=== PATIENT | female | born 1930 | race African-American/Black ===

== ENCOUNTER 2016-11-14 16:47 | Inpatient (IN) | payer MEDICARE, BC ==
[~2016-11-14] VITALS: Ht 157.5 cm; Wt 43.5 kg
[2016-11-14 17:41] LABS: BASOPHILS % (AUTO) 1.4 % (0.0-2.0); EOSINOPHILS % (AUTO) 0.2 % (0.0-3.0); LYMPHOCYTES % (AUTO) 13.9 % (20.0-45.0); MEAN CORPUSCULAR HEMOGLOBIN 33.4 PG (27.0-31.0); MEAN CORPUSCULAR HGB CONC 36.4 G/DL (32.0-36.0); MEAN CORPUSCULAR VOLUME 92 FL (80-99); MEAN PLATELET VOLUME 5.7 FL (6.5-10.1); MONOCYTES % (AUTO) 6.7 % (1.0-10.0); NEUTROPHILS % (AUTO) 77.9 % (45.0-75.0); PLATELET COUNT 251 K/UL (150-450); RED CELL DISTRIBUTION WIDTH 11.9 % (11.6-14.8); WHITE BLOOD COUNT 9.3 K/UL (4.8-10.8)
[2016-11-14] MEDS ORDERED: NKM (17:42)
[2016-11-14 17:43] VITALS: BP 114/72
--- NOTE | 2016-11-14 17:50 | Emergency Room Report ---
History of Present Illness General Chief Complaint: Generalized Weakness Source: Family Member Present Illness HPI 85YOF brought in by family for weakness for 1 week ,thought d/t not wanting to eat. Patient has breast cancer, not currently being treated. Son denies chest pain, SOB, abd pain, nausea/vomiting, fever/chills, c/o urinary complaints. No other known medical problems. Doesnt have PMD. Allergies: Coded Allergies: CORTISONE (Verified Allergy, Unknown, 11/14/16) STREPTOMYCIN (Verified Allergy, Unknown, 11/14/16) SULFA (SULFONAMIDE ANTIBIOTICS) (Verified Allergy, Unknown, 11/14/16) Patient History Past Medical History: other - breast Ca Past Surgical History: none Pertinent Family History: none Social History: Denies: alcohol use, drug use, smoking Now: No Immunizations: UTD Reviewed Nursing Documentation: PMH: Agreed, PSxH: Agreed Nursing Documentation-PMH Past Medical History: No History, Except For Hx Hypertension: Yes Hx Cancer: Yes Review of Systems All Other Systems: negative except mentioned in HPI Physical Exam Vital Signs Date Time Temp Pulse Resp B/P Pulse Ox O2 Delivery O2 Flow Rate FiO2 11/14/16 16:48 97.7 86 16 130/82 100 Room Air Sp02 EP Interpretation: reviewed, normal General Appearance: normal inspection, well appearing, no apparent distress, alert, GCS 15, non-toxic, lethargic, other - very weak appearing, moving slowly , Chronically Ill Head: normocephalic, atraumatic Eyes: bilateral eye EOMI, bilateral eye PERRL ENT: normal ENT inspection, hearing grossly normal, normal voice, dry mucus membranes Neck: normal inspection, full range of motion, supple, no bony tend Respiratory: normal inspection, lungs clear, normal breath sounds, no rhonchi, no respiratory distress, no retraction, no accessory muscle use, no wheezing, speaking full sentences Cardiovascular #1: regular rate, rhythm, no edema Gastrointestinal: normal inspection, normal bowel sounds, non tender, soft, no guarding, no hernia Genitourinary: no CVA tenderness Musculoskeletal: normal inspection, back normal, normal range of motion, Eddi' s Sign negative Neurologic: normal inspection, alert, oriented x3, responsive, errand runner III-XII nml as tested, motor strength/tone normal Psychiatric: normal inspection, judgement/insight normal, mood/affect normal Skin: normal inspection, normal color, warm/dry, other - dry skin Lymphatic: normal inspection Medical Decision Making Medicare Attestation I Elaine Spivey MD hereby attest that the medical record entry for date of service, 05/25/16 accurately reflects signatures/notations that I made in my capacity as MD when I treated/diagnosed the above listed Medicare beneficiary. I attest that this information is true, accurate and complete to the best of my knowledge. I understand that any falsification, omission, or concealment of material fact may subject me to administrative, civil, or criminal liability. This patient warrants hospital admission for extreme of age and has a condition that cannot be treated as outpatient. Diagnostic Impression: Primary Impression: Episode of generalized weakness Additional Impressions: CAITLIN (acute kidney injury) Hypercalcemia ER Course 85YOF with weakness for 1 week, not eating VSS. Afebrile Weakness - Appears very weak but alert and oriented - No sign of Sepsis, systemic illness - Labs c/w dehydration, hypercalcemia - ECG with multiple PVCs but no ischemia. Troponin 0. - UA and CXR negative for infection - Rehydration gently started in ED for CAITLIN, hyperCa Endorsed to Dr Sanchez for panel admission to med/surg bed at 628pm EKG Diagnostic Results Rate: normal, other - PVCs, fusion complexes Rhythm: NSR ST Segments: no acute changes ASA given to the pt in ED: No Rhythm Strip Diag. Results EP Interpretation: yes Rate: 85 Rhythm: NSR, other - PVCs Chest X-Ray Diagnostic Results EP Interpretation: Yes Findings: no consolidation, no effusion, no pneumothorax, no acute cardiopulmonary disease Number of Views: 1 Last Vital Signs Date Time Temp Pulse Resp B/P Pulse Ox O2 Delivery O2 Flow Rate FiO2 11/14/16 17:43 97.7 80 16 114/72 100 Room Air Status: improved Disposition: ADMITTED INPATIENT Condition: Serious Referrals: NOT CHOSEN IPA/,REFERRING (PCP) ELAINE SPIVEY M.D. November 14, 2016 17:50
[2016-11-14 17:54] LABS: APPEARANCE,URINE CLEAR; KETONES,URINE NEGATIVE (NEGATIVE); LEUKOCYTE ESTERASE ,URINE NEGATIVE (NEGATIVE); NITRITE,URINE NEGATIVE (NEGATIVE); PH,URINE 6 (4.5-8.0); PROTEIN,URINE NEGATIVE (NEGATIVE); TROPONIN I < 0.30 ng/mL (<=0.30); UROBILINOGEN,URINE NORMAL MG/DL (0.0-1.0)
[2016-11-14 17:57] LABS: ALANINE AMINOTRANSFERASE 11 U/L (3-33); ANION GAP 16 (5-15); ASPARTATE AMINO TRANSFERASE 15 U/L (5-40); CALCIUM 11.4 mg/dL (8.6-10.2); CARBON DIOXIDE 31 mEQ/L (20-30); CHLORIDE 89 mEQ/L (98-107); CREATININE 1.1 mg/dL (0.5-0.9); HEMOLYSIS 10; POTASSIUM 4.2 mEQ/L (3.4-4.9); SODIUM 136 mEQ/L (135-145); TOTAL PROTEIN 6.9 g/dL (6.6-8.7)
[2016-11-14 18:07] LABS: CKMB < 1.5 ng/mL (< 3.8)
[2016-11-14 18:31] LABS: BILIRUBIN,DIRECT 0.2 mg/dL (0.1-0.3)
[2016-11-14 18:54] VITALS: BP 105/57
[2016-11-14 21:00] VITALS: BP 114/66
[2016-11-14] MEDS ORDERED: Morphine Sulfate 2mg/ml Inj IVP PRN (21:45)
[2016-11-14] MEDS ORDERED: Mylanta II UD 30ml ORAL PRN (21:45)
[2016-11-14] MEDS ORDERED: Miralax 17gm pkt ORAL PRN (21:45)
[2016-11-14] MEDS ORDERED: LORazepam Inj 2mg/ml 1ml IV PRN (21:45)
[2016-11-14] MEDS ORDERED: Nitroglycerin Subl 0.4mg tab (Bottle Of 25) SL PRN (21:45)
[2016-11-14] MEDS ORDERED: DuoNeb 0.5-3(2.5)mg/3ml neb HHN PRN (21:45)
[2016-11-14 21:55] LABS: THYROID STIMULATING HORMONE 1.55 uIU/mL (0.300-4.500)
[2016-11-14] MEDS: D5 1/2NS 1,000 ML IV SCH (22:37)
--- NOTE | 2016-11-15 04:01 | Consultation ---
DATE OF CONSULTATION: HEMATOLOGY/ONCOLOGY CONSULTATION REQUESTING PHYSICIAN: Rishi Sanchez D.O. CONSULTING PHYSICIAN: Terell Almazan M.D. REASON FOR CONSULTATION: Hypercalcemia and breast cancer. CURRENT COMPLAINT/HISTORY OF PRESENT ILLNESS: Dear Dr. Rishi Sanchez, Today, I had an opportunity to see one of your patients, Oleg Riggs, who as you well aware 85-year-old delightful female, with history of breast cancer. The patient is not currently being treated. The patient has generalized weakness, extreme fatigue, and mild shortness of breath. During evaluation, it was found that the patient developed some hypercalcemia. The patient with history of hypertension, history of breast cancer. PAST MEDICAL HISTORY: 1. Breast cancer, not currently being treated. 2. Hypertension. 3. Decreased p.o. intake. 4. Decreased fluid intake. 5. Weight loss. 6. Malnutrition. MEDICATIONS: Medication list reviewed. Sodium chloride. ALLERGIES: SOCIAL HISTORY: Noncontributory. FAMILY HISTORY: Noncontributory. REVIEW OF SYSTEMS: General Description: The patient is not in any significant distress, but looks chronically ill. Respiratory: Mild shortness of breath on exertion. Neuromuscular: The patient claims muscle aches. PHYSICAL EXAMINATION: VITAL SIGNS: T-Max 97 degrees, respiratory rate 20, heart rate 80, and blood pressure 125/75. HEENT: Head: Normocephalic and atraumatic. NECK: Supple. No thyroid enlargement. No lymphadenopathy. LUNGS: Decreased breath sounds bilaterally with few rhonchi in the base. HEART: S1 and S2 regular. ABDOMEN: Soft and benign. No organomegaly present. Bowel sounds present. EXTREMITIES: No cyanosis, clubbing, or edema. LABORATORY DATA: 121 and calcium 11.4. Hemoglobin 15.0, hematocrit 41.3, and platelet count 351,000. IMPRESSION: 1. History of breast cancer. 2. History of noncompliance. 3. Hypertension. 4. Malnutrition. 5. Significant weight loss. 6. Decreased oral intake. 7. Decreased fluid intake. 8. Debilitation. 9. Failure to thrive. RECOMMENDATIONS: 1. Watch count. 2. Watch coagulopathy. 3. PRBC transfusion p.r.n. basis. 4. Hydration IV. 5. GI evaluation. 6. Check tumor markers. 7. Skin care. 8. Nutrition. 9. Close followup. 10. Discussed with the staff. Terell Almazan MD DR: Marce JOB#: [id number] CC:
[2016-11-15 07:43] LABS: BASOPHILS % (AUTO) 0.4 % (0.0-2.0); EOSINOPHILS % (AUTO) 0.4 % (0.0-3.0); LYMPHOCYTES % (AUTO) 13.4 % (20.0-45.0); MEAN CORPUSCULAR HEMOGLOBIN 31.5 PG (27.0-31.0); MEAN CORPUSCULAR HGB CONC 34.7 G/DL (32.0-36.0); MEAN CORPUSCULAR VOLUME 91 FL (80-99); MEAN PLATELET VOLUME 5.8 FL (6.5-10.1); MONOCYTES % (AUTO) 11.4 % (1.0-10.0); NEUTROPHILS % (AUTO) 74.5 % (45.0-75.0); PLATELET COUNT 245 K/UL (150-450); RED BLOOD COUNT 3.63 M/UL (4.20-5.40); WHITE BLOOD COUNT 7.8 K/UL (4.8-10.8)
[2016-11-15 07:49] LABS: INR 1.1 (0.9-1.1); PROTHROMBIN TIME 10.9 SEC (9.30-11.50)
[2016-11-15 08:01] LABS: ALANINE AMINOTRANSFERASE 9 U/L (3-33); ALBUMIN/GLOBULIN RATIO 1.1 (1.0-2.7); ANION GAP 12 (5-15); ASPARTATE AMINO TRANSFERASE 13 U/L (5-40); CALCIUM 10.1 mg/dL (8.6-10.2); CARBON DIOXIDE 27 mEQ/L (20-30); CHLORIDE 97 mEQ/L (98-107); CHOLESTEROL 154 mg/dL (< 200); CHOLESTEROL/HDL RATIO 1.9 (3.3-4.4); CREATININE 0.8 mg/dL (0.5-0.9); HEMOLYSIS 1; LDL CHOLESTEROL (CALC.) 60 mg/dL (60-99); SODIUM 136 mEQ/L (135-145); TOTAL PROTEIN 5.7 g/dL (6.6-8.7)
[2016-11-15 08:15] VITALS: BP 99/53
[2016-11-15] MEDS: D5 1/2NS 1,000 ML IV SCH (10:49)
[2016-11-15 12:13] VITALS: BP 108/58
[2016-11-15 16:01] VITALS: BP 88/46
[2016-11-15 16:37] VITALS: BP 93/50
--- NOTE | 2016-11-15 17:39 | Consultation ---
History of Present Illness General Chief Complaint: Generalized Weakness Referring physician: Dr Rishi Sanchez Reason for Consultation: Acute Kidney Injury Present Illness HPI Leanne an 85 yr old female with a PMHx of Breast cancer not currently on treatment, and HTN who presented to the ED with generalized weakness, poor po intake and shortness of breath. Pt was found to have elevated BUN and creatinine in ED Allergies: Coded Allergies: CORTISONE (Verified Allergy, Unknown, 11/14/16) STREPTOMYCIN (Verified Allergy, Unknown, 11/14/16) SULFA (SULFONAMIDE ANTIBIOTICS) (Verified Allergy, Unknown, 11/14/16) Medication History Scheduled No Known Medications* (NKM - No Known Medications*), 0 ., (Reported) Patient History Healthcare decision maker SANJAY RANGLE SR Resuscitation status Advanced Directive on File Yes Past Medical/Surgical History Past Medical/Surgical History: (1) HTN (hypertension) (2) Breast cancer Social History Social History: (1) Non-smoker (2) No history of alcohol use (3) No illicit drug use Review of Systems All Other Systems: negative except mentioned in HPI Physical Exam General Appearance: alert Lines, tubes and drains: peripheral HEENT: normocephalic, atraumatic Neck: non-tender, normal alignment, supple, normal inspection Respiratory/Chest: normal breath sounds Cardiovascular/Chest: normal peripheral pulses, normal rate, regular rhythm Abdomen: non tender, soft, no organomegaly Extremities: non-tender, normal inspection Skin Exam: warm/dry Neurologic: alert, responsive, normal mood/affect Last 24 Hour Vital Signs Date Time Temp Pulse Resp B/P Pulse Ox O2 Delivery O2 Flow Rate FiO2 11/15/16 16:37 93/50 11/15/16 16:01 97.6 88 23 88/46 99 Room Air 11/15/16 12:13 97.6 86 23 108/58 99 Room Air 11/15/16 08:15 98.1 80 20 99/53 97 Room Air 11/14/16 21:00 98.1 20 114/66 97 Room Air 11/14/16 18:59 97.7 77 16 105/57 97 Room Air 11/14/16 18:54 97.7 77 16 105/57 97 Room Air 11/14/16 17:43 97.7 80 16 114/72 100 Room Air Intake and Output 11/14/16 11/15/16 19:00 07:00 Intake Total 600 ml Balance 600 ml IV Total 600 ml # Voids 1 3 Laboratory Tests Test 11/15/16 06:40 White Blood Count 7.8 K/UL (4.8-10.8) Red Blood Count 3.63 M/UL (4.20-5.40) L Hemoglobin 11.5 G/DL (12.0-16.0) L Hematocrit 33.0 % (37.0-47.0) L Mean Corpuscular Volume 91 FL (80-99) Mean Corpuscular Hemoglobin 31.5 PG (27.0-31.0) H Mean Corpuscular Hemoglobin Concent 34.7 G/DL (32.0-36.0) Red Cell Distribution Width 12.0 % (11.6-14.8) Platelet Count 245 K/UL (150-450) Mean Platelet Volume 5.8 FL (6.5-10.1) L Neutrophils (%) (Auto) 74.5 % (45.0-75.0) Lymphocytes (%) (Auto) 13.4 % (20.0-45.0) L Monocytes (%) (Auto) 11.4 % (1.0-10.0) H Eosinophils (%) (Auto) 0.4 % (0.0-3.0) Basophils (%) (Auto) 0.4 % (0.0-2.0) Prothrombin Time 10.9 SEC (9.30-11.50) Prothromb Time International Ratio 1.1 (0.9-1.1) Activated Partial Thromboplast Time 24 SEC (23-33) Sodium Level 136 mEQ/L (135-145) Potassium Level 4.0 mEQ/L (3.4-4.9) Chloride Level 97 mEQ/L (98-107) L Carbon Dioxide Level 27 mEQ/L (20-30) Anion Gap 12 (5-15) Blood Urea Nitrogen 54 mg/dL (7-23) H Creatinine 0.8 mg/dL (0.5-0.9) Estimat Glomerular Filtration Rate mL/min (>60) Glucose Level 104 mg/dL (74-106) Calcium Level 10.1 mg/dL (8.6-10.2) Total Bilirubin 0.8 mg/dL (0.0-1.2) Aspartate Amino Transf (AST/SGOT) 13 U/L (5-40) Alanine Aminotransferase (ALT/SGPT) 9 U/L (3-33) Alkaline Phosphatase 45 U/L (35-104) Total Protein 5.7 g/dL (6.6-8.7) L Albumin 3.0 g/dL (3.5-5.2) L Globulin 2.7 g/dL Albumin/Globulin Ratio 1.1 (1.0-2.7) Triglycerides Level 74 mg/dL (< 150) Cholesterol Level 154 mg/dL (< 200) LDL Cholesterol 60 mg/dL (60-99) HDL Cholesterol 79 mg/dL (> 60) H Cholesterol/HDL Ratio 1.9 (3.3-4.4) L Height (Feet): 5 Height (Inches): 2.00 Weight (Pounds): 96 Medications Current Medications Medications (Trade) Dose Ordered Sig/Tete Route PRN Reason Start Time Stop Time Status Last Admin Dose Admin Acetaminophen (Tylenol) 650 mg Q4H PRN ORAL fever 11/14/16 21:45 12/14/16 21:44 Al Hydroxide/Mg Hydroxide (Mylanta II) 30 ml Q6H PRN ORAL dyspepsia 11/14/16 21:45 12/14/16 21:44 Albuterol/ Ipratropium (DuoNeb 0.5-3(2.5)mg/3ml) 3 ml Q4H PRN HHN Shortness of Breath 11/14/16 21:45 11/19/16 21:44 Clonidine HCl 0.1 mg 0.1 mg Q4H PRN ORAL For High Blood Pressure 11/14/16 21:45 12/14/16 21:44 Dextrose (Dextrose 50%) STAT PRN IV Hypoglycemia 11/14/16 21:45 12/14/16 21:44 Dextrose/Sodium Chloride (D5 0.45% NS) 1,000 ml @ 75 mls/hr [id number] IV 11/14/16 21:45 12/14/16 21:44 11/15/16 10:49 Docusate Sodium (Colace) 100 mg TWICE A DAY ORAL 11/15/16 18:00 12/15/16 17:59 Heparin Sodium (Porcine) (Heparin 5000 units/ml) 5,000 units EVERY 12 HOURS SUBQ 11/15/16 22:00 12/15/16 21:59 Lorazepam (Ativan 2mg/ml 1ml) 0.5 mg Q4H PRN IV For Anxiety 11/14/16 21:45 11/21/16 21:44 Morphine Sulfate (Morphine Sulfate) 1 mg Q4H PRN IVP For Pain 7-10 11/14/16 21:45 11/21/16 21:44 Nitroglycerin (Ntg) 0.4 mg Q5M X 3 DOSES PRN SL Prn Chest Pain 11/14/16 21:45 12/14/16 21:44 Ondansetron HCl (Zofran) 4 mg Q6H PRN IVP Nausea & Vomiting 11/14/16 21:45 12/14/16 21:44 Polyethylene Glycol (Miralax) 17 gm BEDTIME ORAL 11/15/16 21:00 12/15/16 20:59 Polyethylene Glycol (Miralax) 17 gm HSPRN PRN ORAL Constipation 11/14/16 21:45 12/14/16 21:44 Temazepam (Restoril) 15 mg HSPRN PRN ORAL Insomnia 11/14/16 21:45 11/21/16 21:44 Assessment/Plan Problem List: (1) Hypercalcemia ICD Codes: E83.52 - Hypercalcemia SNOMED: 31522226 (2) CAITLIN (acute kidney injury) ICD Codes: N17.9 - Acute kidney failure, unspecified SNOMED: 07689361 (3) Episode of generalized weakness ICD Codes: R53.1 - Weakness SNOMED: 91557201 (4) HTN (hypertension) ICD Codes: I10 - Essential (primary) hypertension SNOMED: 22026056 (5) Severe protein-calorie malnutrition ICD Codes: E43 - Unspecified severe protein-calorie malnutrition SNOMED: 772328216 (6) Weakness ICD Codes: R53.1 - Weakness SNOMED: 68748497 Assessment/Plan Monitor BUN/cr Avoid nephrotoxic agents Monitor lytes, correct as needed Oncologist following Continue IVF DVT Prophylaxis JOSÉ MCCARTHY November 15, 2016 17:39
--- NOTE | 2016-11-15 17:43 | Consultation ---
History of Present Illness General Date patient seen: November 15, 2016 Chief Complaint: Generalized Weakness Referring physician: Dr. Sanchez Reason for Consultation: inpatient management Present Illness HPI 85 year old female with hx of breast cancer for a few years, brought in by family for weakness for 1 week , poor appetite and not wanting to eat. She has been getting weaker and unable to ambulate. She stated that she doesn't have any appetite any more Allergies: Coded Allergies: CORTISONE (Verified Allergy, Unknown, 11/14/16) STREPTOMYCIN (Verified Allergy, Unknown, 11/14/16) SULFA (SULFONAMIDE ANTIBIOTICS) (Verified Allergy, Unknown, 11/14/16) Medication History Scheduled No Known Medications* (NKM - No Known Medications*), 0 ., (Reported) Patient History Healthcare decision maker SANJAY RANGEL SR Resuscitation status Advanced Directive on File Yes Past Medical/Surgical History Past Medical/Surgical History: (1) Breast cancer Review of Systems All Other Systems: negative except mentioned in HPI Physical Exam General Appearance: cachetic Lines, tubes and drains: peripheral HEENT: normocephalic Neck: non-tender Respiratory/Chest: chest wall non-tender, normal breath sounds Cardiovascular/Chest: normal peripheral pulses Abdomen: normal bowel sounds Genitourinary/Rectal: normal genital exam Extremities: normal range of motion Skin Exam: normal pigmentation Neurologic: data security coordinator II-XII grossly normal Last 24 Hour Vital Signs Date Time Temp Pulse Resp B/P Pulse Ox O2 Delivery O2 Flow Rate FiO2 11/15/16 16:37 93/50 11/15/16 16:01 97.6 88 23 88/46 99 Room Air 11/15/16 12:13 97.6 86 23 108/58 99 Room Air 11/15/16 08:15 98.1 80 20 99/53 97 Room Air 11/14/16 21:00 98.1 20 114/66 97 Room Air 11/14/16 18:59 97.7 77 16 105/57 97 Room Air 11/14/16 18:54 97.7 77 16 105/57 97 Room Air 11/14/16 17:43 97.7 80 16 114/72 100 Room Air Intake and Output 11/14/16 11/15/16 19:00 07:00 Intake Total 600 ml Balance 600 ml IV Total 600 ml # Voids 1 3 Laboratory Tests Test 11/15/16 06:40 White Blood Count 7.8 K/UL (4.8-10.8) Red Blood Count 3.63 M/UL (4.20-5.40) L Hemoglobin 11.5 G/DL (12.0-16.0) L Hematocrit 33.0 % (37.0-47.0) L Mean Corpuscular Volume 91 FL (80-99) Mean Corpuscular Hemoglobin 31.5 PG (27.0-31.0) H Mean Corpuscular Hemoglobin Concent 34.7 G/DL (32.0-36.0) Red Cell Distribution Width 12.0 % (11.6-14.8) Platelet Count 245 K/UL (150-450) Mean Platelet Volume 5.8 FL (6.5-10.1) L Neutrophils (%) (Auto) 74.5 % (45.0-75.0) Lymphocytes (%) (Auto) 13.4 % (20.0-45.0) L Monocytes (%) (Auto) 11.4 % (1.0-10.0) H Eosinophils (%) (Auto) 0.4 % (0.0-3.0) Basophils (%) (Auto) 0.4 % (0.0-2.0) Prothrombin Time 10.9 SEC (9.30-11.50) Prothromb Time International Ratio 1.1 (0.9-1.1) Activated Partial Thromboplast Time 24 SEC (23-33) Sodium Level 136 mEQ/L (135-145) Potassium Level 4.0 mEQ/L (3.4-4.9) Chloride Level 97 mEQ/L (98-107) L Carbon Dioxide Level 27 mEQ/L (20-30) Anion Gap 12 (5-15) Blood Urea Nitrogen 54 mg/dL (7-23) H Creatinine 0.8 mg/dL (0.5-0.9) Estimat Glomerular Filtration Rate mL/min (>60) Glucose Level 104 mg/dL (74-106) Calcium Level 10.1 mg/dL (8.6-10.2) Total Bilirubin 0.8 mg/dL (0.0-1.2) Aspartate Amino Transf (AST/SGOT) 13 U/L (5-40) Alanine Aminotransferase (ALT/SGPT) 9 U/L (3-33) Alkaline Phosphatase 45 U/L (35-104) Total Protein 5.7 g/dL (6.6-8.7) L Albumin 3.0 g/dL (3.5-5.2) L Globulin 2.7 g/dL Albumin/Globulin Ratio 1.1 (1.0-2.7) Triglycerides Level 74 mg/dL (< 150) Cholesterol Level 154 mg/dL (< 200) LDL Cholesterol 60 mg/dL (60-99) HDL Cholesterol 79 mg/dL (> 60) H Cholesterol/HDL Ratio 1.9 (3.3-4.4) L Height (Feet): 5 Height (Inches): 2.00 Weight (Pounds): 96 Medications Current Medications Medications (Trade) Dose Ordered Sig/Tete Route PRN Reason Start Time Stop Time Status Last Admin Dose Admin Acetaminophen (Tylenol) 650 mg Q4H PRN ORAL fever 11/14/16 21:45 12/14/16 21:44 Al Hydroxide/Mg Hydroxide (Mylanta II) 30 ml Q6H PRN ORAL dyspepsia 11/14/16 21:45 12/14/16 21:44 Albuterol/ Ipratropium (DuoNeb 0.5-3(2.5)mg/3ml) 3 ml Q4H PRN HHN Shortness of Breath 11/14/16 21:45 11/19/16 21:44 Clonidine HCl 0.1 mg 0.1 mg Q4H PRN ORAL For High Blood Pressure 11/14/16 21:45 12/14/16 21:44 Dextrose (Dextrose 50%) STAT PRN IV Hypoglycemia 11/14/16 21:45 12/14/16 21:44 Dextrose/Sodium Chloride (D5 0.45% NS) 1,000 ml @ 75 mls/hr [id number] IV 11/14/16 21:45 12/14/16 21:44 11/15/16 10:49 Docusate Sodium (Colace) 100 mg TWICE A DAY ORAL 11/15/16 18:00 12/15/16 17:59 Heparin Sodium (Porcine) (Heparin 5000 units/ml) 5,000 units EVERY 12 HOURS SUBQ 11/15/16 22:00 12/15/16 21:59 Lorazepam (Ativan 2mg/ml 1ml) 0.5 mg Q4H PRN IV For Anxiety 11/14/16 21:45 11/21/16 21:44 Morphine Sulfate (Morphine Sulfate) 1 mg Q4H PRN IVP For Pain 7-10 11/14/16 21:45 11/21/16 21:44 Nitroglycerin (Ntg) 0.4 mg Q5M X 3 DOSES PRN SL Prn Chest Pain 11/14/16 21:45 12/14/16 21:44 Ondansetron HCl (Zofran) 4 mg Q6H PRN IVP Nausea & Vomiting 11/14/16 21:45 12/14/16 21:44 Polyethylene Glycol (Miralax) 17 gm BEDTIME ORAL 11/15/16 21:00 12/15/16 20:59 Polyethylene Glycol (Miralax) 17 gm HSPRN PRN ORAL Constipation 11/14/16 21:45 12/14/16 21:44 Temazepam (Restoril) 15 mg HSPRN PRN ORAL Insomnia 11/14/16 21:45 11/21/16 21:44 Assessment/Plan Problem List: (1) CAITLIN (acute kidney injury) ICD Codes: N17.9 - Acute kidney failure, unspecified SNOMED: 64400442 (2) Hypercalcemia ICD Codes: E83.52 - Hypercalcemia SNOMED: 25426266 (3) Severe protein-calorie malnutrition ICD Codes: E43 - Unspecified severe protein-calorie malnutrition SNOMED: 847240802 (4) Breast cancer ICD Codes: C50.919 - Malignant neoplasm of unspecified site of unspecified female breast SNOMED: 960338403 (5) HTN (hypertension) ICD Codes: I10 - Essential (primary) hypertension SNOMED: 48914869 Assessment/Plan iv fluids check electrolytes check Ca calorie count appetite stimulant LAVONNE ARNETT November 15, 2016 17:43
[2016-11-15] MEDS: Docusate 100mg cap ORAL SCH (17:51)
--- NOTE | 2016-11-15 20:01 | History and Physical Report ---
DATE OF ADMISSION: 11/14/2016 TIME: 8 a.m. CONSULTANTS: 1. Ke Fleming M.D. 2. Terell Almazan M.D. 3. Alexandra Schulte M.D CHIEF COMPLAINT: Failure to thrive, breast cancer, and dehydration. BRIEF HISTORY: The patient is an 85-year-old female with a history of breast cancer, refusing traditional medications, on herbal medications, became very lethargic and tired, not eating well, who came to [place], diagnosed the above, failure to thrive, CAITLIN, and dehydration and admitted to medical floor for further treatment. Currently, calm, sleeping in bed. No complaint. No chest pain. No shortness of breath. No nausea, vomiting or diarrhea. PAST MEDICAL HISTORY: Breast cancer, weakness, and dehydration. PAST SURGICAL HISTORY: None. MEDICATIONS: Heparin, DuoNeb, Tylenol, morphine, MiraLAX, Zofran, Ativan, Mylanta, nitroglycerin, and Catapres. ALLERGIES: Cortisone, streptomycin, sulfa, SOCIAL HISTORY: No smoking. No alcohol. No intravenous drug abuse. FAMILY HISTORY: Noncontributory. PHYSICAL EXAMINATION: GENERAL: Calm in bed, oriented x2, no acute distress. VITAL SIGNS: Temperature 98 degrees, pulse 80, respirations 20, and blood pressure 114/66. CARDIOVASCULAR: No murmurs. LUNGS: Poor air exchange. ABDOMEN: Positive bowel sounds. Soft, nontender and nondistended. EXTREMITIES: No cyanosis, clubbing, or edema. NEUROLOGIC: The patient moves all extremities, but slightly weak. LABORATORY AND DIAGNOSTIC DATA: Hemoglobin 11.5, otherwise CBC is normal. BMP shows chloride 89, bicarbonate 31, BUN and creatinine is 48 and 1.1, and glucose 141. INR is pending. Urinalysis is negative. ASSESSMENT: 1. Failure to thrive. 2. Anemia. 3. Breast cancer. 4. Refusing medications. 5. Acute kidney injury. 6. Diabetes. 7. Dehydration. PLAN: Continue pre-medications. OT/PT. Dietary followup. Blood pressure and blood sugar control. IV fluids. Pain control. Antiemetic as needed. Dr. Knowles, Dr. Almazan, and Dr. Schulte to consult. Rishi Sanchez D.O. DR: SRAVANI JOB#: [id number] CC:
[2016-11-15 21:00] VITALS: BP 108/52
[2016-11-15] MEDS: Miralax 17gm pkt ORAL SCH (22:21)
[2016-11-15] MEDS: Heparin 5000 units/ml inj SUBQ SCH (22:21)
--- NOTE | 2016-11-15 23:04 | General Progress Note ---
Assessment/Plan Assessment/Plan IMPRESSION: 1. History of breast cancer. 2. History of noncompliance. 3. Hypertension. 4. Malnutrition. 5. Significant weight loss. 6. Decreased oral intake. 7. Decreased fluid intake. 8. Debilitation. 9. Failure to thrive. RECOMMENDATIONS: 1. Watch count. 2. Watch coagulopathy. 3. PRBC transfusion p.r.n. basis. 4. Hydration IV. 5. GI evaluation. 6. Reviewed tumor markers 7. Skin care. 8. Nutrition. 9. Close followup. 10. Discussed with the staff. Subjective Constitutional: Reports: no symptoms HEENT: Reports: no symptoms Cardiovascular: Reports: no symptoms Respiratory: Reports: no symptoms Gastrointestinal/Abdominal: Reports: poor appetite Genitourinary: Reports: no symptoms Neurologic/Psychiatric: Reports: anxiety Endocrine: Reports: no symptoms Hematologic/Lymphatic: Reports: anemia Allergies: Coded Allergies: CORTISONE (Verified Allergy, Unknown, 11/14/16) STREPTOMYCIN (Verified Allergy, Unknown, 11/14/16) SULFA (SULFONAMIDE ANTIBIOTICS) (Verified Allergy, Unknown, 11/14/16) Subjective feels slightly better but remains weak, on ivf Objective Last 24 Hour Vital Signs Date Time Temp Pulse Resp B/P Pulse Ox O2 Delivery O2 Flow Rate FiO2 11/15/16 21:00 98.2 86 20 108/52 98 Room Air 11/15/16 16:37 93/50 11/15/16 16:01 97.6 88 23 88/46 99 Room Air 11/15/16 12:13 97.6 86 23 108/58 99 Room Air 11/15/16 08:15 98.1 80 20 99/53 97 Room Air Intake and Output 11/14/16 11/15/16 19:00 07:00 Intake Total 600 ml Balance 600 ml IV Total 600 ml # Voids 1 3 Laboratory Tests 11/15/16 06:40: White Blood Count 7.8, Red Blood Count 3.63L, Hemoglobin 11.5L, Hematocrit 33.0L , Mean Corpuscular Volume 91, Mean Corpuscular Hemoglobin 31.5H, Mean Corpuscular Hemoglobin Concent 34.7, Red Cell Distribution Width 12.0, Platelet Count 245, Mean Platelet Volume 5.8L, Neutrophils (%) (Auto) 74.5, Lymphocytes ( %) (Auto) 13.4L, Monocytes (%) (Auto) 11.4H, Eosinophils (%) (Auto) 0.4, Basophils (%) (Auto) 0.4, Prothrombin Time 10.9, Prothromb Time International Ratio 1.1, Activated Partial Thromboplast Time 24, Sodium Level 136, Potassium Level 4.0, Chloride Level 97L, Carbon Dioxide Level 27, Anion Gap 12, Blood Urea Nitrogen 54H, Creatinine 0.8, Estimat Glomerular Filtration Rate , Glucose Level 104, Calcium Level 10.1, Total Bilirubin 0.8, Aspartate Amino Transf (AST/ SGOT) 13, Alanine Aminotransferase (ALT/SGPT) 9, Alkaline Phosphatase 45, Total Protein 5.7L, Albumin 3.0L, Globulin 2.7, Albumin/Globulin Ratio 1.1, Triglycerides Level 74, Cholesterol Level 154, LDL Cholesterol 60, HDL Cholesterol 79H, Cholesterol/HDL Ratio 1.9L Height (Feet): 5 Height (Inches): 2.00 Weight (Pounds): 96 General Appearance: alert EENT: TMs normal Neck: supple Cardiovascular: regular rhythm Respiratory/Chest: no respiratory distress Extremities: non-tender Edema: 1+ Leg (L), 1+ Leg (R) Edema: mild edema Neurologic: alert Skin: warm/dry Dennys Almazan November 15, 2016 23:04
[2016-11-16] MEDS: D5 1/2NS 1,000 ML IV SCH ×2 (01:37→18:09)
[2016-11-16 06:14] LABS: BASOPHILS % (AUTO) 0.9 % (0.0-2.0); EOSINOPHILS % (AUTO) 0.6 % (0.0-3.0); LYMPHOCYTES % (AUTO) 11.9 % (20.0-45.0); MEAN CORPUSCULAR HEMOGLOBIN 31.3 PG (27.0-31.0); MEAN CORPUSCULAR HGB CONC 34.2 G/DL (32.0-36.0); MEAN CORPUSCULAR VOLUME 92 FL (80-99); MEAN PLATELET VOLUME 5.6 FL (6.5-10.1); MONOCYTES % (AUTO) 9.1 % (1.0-10.0); NEUTROPHILS % (AUTO) 77.5 % (45.0-75.0); PLATELET COUNT 232 K/UL (150-450); RED BLOOD COUNT 3.47 M/UL (4.20-5.40); RED CELL DISTRIBUTION WIDTH 11.9 % (11.6-14.8); WHITE BLOOD COUNT 7.5 K/UL (4.8-10.8)
[2016-11-16 06:33] LABS: ANION GAP 14 (5-15); CALCIUM 9.9 mg/dL (8.6-10.2); CARBON DIOXIDE 24 mEQ/L (20-30); CHLORIDE 98 mEQ/L (98-107); CREATININE 0.8 mg/dL (0.5-0.9); HEMOLYSIS 0; POTASSIUM 3.7 mEQ/L (3.4-4.9); SODIUM 136 mEQ/L (135-145)
--- NOTE | 2016-11-16 07:40 | General Progress Note ---
Assessment/Plan Problem List: (1) Hypercalcemia ICD Codes: E83.52 - Hypercalcemia SNOMED: 65342908 (2) CAITLIN (acute kidney injury) ICD Codes: N17.9 - Acute kidney failure, unspecified SNOMED: 50843756 (3) Episode of generalized weakness ICD Codes: R53.1 - Weakness SNOMED: 87375347 (4) Breast cancer ICD Codes: C50.919 - Malignant neoplasm of unspecified site of unspecified female breast SNOMED: 697647574 (5) HTN (hypertension) ICD Codes: I10 - Essential (primary) hypertension SNOMED: 46734700 (6) Severe protein-calorie malnutrition ICD Codes: E43 - Unspecified severe protein-calorie malnutrition SNOMED: 964837495 Status: stable, progressing, tolerating diet Assessment/Plan ot pt diet ivf cbc bmp am dc plan w hh Subjective Constitutional: Reports: weakness Allergies: Coded Allergies: CORTISONE (Verified Allergy, Unknown, 11/14/16) STREPTOMYCIN (Verified Allergy, Unknown, 11/14/16) SULFA (SULFONAMIDE ANTIBIOTICS) (Verified Allergy, Unknown, 11/14/16) All Systems: reviewed and negative except above Subjective sleepy calm in bed Objective Last 24 Hour Vital Signs Date Time Temp Pulse Resp B/P Pulse Ox O2 Delivery O2 Flow Rate FiO2 11/15/16 21:00 98.2 86 20 108/52 98 Room Air 11/15/16 16:37 93/50 11/15/16 16:01 97.6 88 23 88/46 99 Room Air 11/15/16 12:13 97.6 86 23 108/58 99 Room Air 11/15/16 08:15 98.1 80 20 99/53 97 Room Air Intake and Output 11/15/16 11/16/16 19:00 07:00 Intake Total 1380 ml 900 ml Balance 1380 ml 900 ml Intake Oral 480 ml IV Total 900 ml 900 ml # Voids 4 2 Laboratory Tests 11/16/16 05:50: White Blood Count 7.5, Red Blood Count 3.47L, Hemoglobin 10.9L, Hematocrit 31.8L , Mean Corpuscular Volume 92, Mean Corpuscular Hemoglobin 31.3H, Mean Corpuscular Hemoglobin Concent 34.2, Red Cell Distribution Width 11.9, Platelet Count 232, Mean Platelet Volume 5.6L, Neutrophils (%) (Auto) 77.5H, Lymphocytes (%) (Auto) 11.9L, Monocytes (%) (Auto) 9.1, Eosinophils (%) (Auto) 0.6, Basophils (%) (Auto) 0.9, Sodium Level 136, Potassium Level 3.7, Chloride Level 98, Carbon Dioxide Level 24, Anion Gap 14, Blood Urea Nitrogen 44H, Creatinine 0.8, Estimat Glomerular Filtration Rate , Glucose Level 124H, Calcium Level 9.9 Height (Feet): 5 Height (Inches): 2.00 Weight (Pounds): 96 General Appearance: lethargic EENT: normal ENT inspection Neck: normal alignment Cardiovascular: normal peripheral pulses, normal rate, regular rhythm Respiratory/Chest: chest wall non-tender, lungs clear, normal breath sounds Abdomen: normal bowel sounds, non tender, soft Extremities: normal inspection Edema: no edema noted Arm (L), no edema noted Arm (R), no edema noted Leg (L), no edema noted Leg (R), no edema noted Pedal (L), no edema noted Pedal (R), no edema noted Generalized Neurologic: responsive, motor weakness Skin: normal pigmentation, warm/dry SRIKANTH VILLASENOR November 16, 2016 07:40
[2016-11-16 08:00] VITALS: BP 114/48
[2016-11-16] MEDS: Docusate 100mg cap ORAL SCH ×2 (09:40→18:10)
[2016-11-16] MEDS: Heparin 5000 units/ml inj SUBQ SCH ×2 (09:41→20:25)
[2016-11-16 12:28] VITALS: BP 105/66
[2016-11-16 16:22] VITALS: BP 123/59
[2016-11-16] MEDS ORDERED: D5 1/2NS 1000ml IV ONE (17:41)
--- NOTE | 2016-11-16 17:58 | General Progress Note ---
Assessment/Plan Assessment/Plan IMPRESSION: 1. History of breast cancer. 2. History of noncompliance. 3. Hypertension. 4. Malnutrition. 5. Significant weight loss. 6. Decreased oral intake. 7. Decreased fluid intake. 8. Debilitation. 9. Failure to thrive. RECOMMENDATIONS: 1. Watch count. 2. Watch coagulopathy. 3. PRBC transfusion p.r.n. basis. 4. Hydration IV. 5. GI evaluation. 6. Reviewed tumor markers 7. Skin care. 8. Nutrition. 9. Close followup. 10. Discussed with the staff. Subjective Constitutional: Reports: no symptoms HEENT: Reports: mouth pain Cardiovascular: Reports: no symptoms Respiratory: Reports: no symptoms Gastrointestinal/Abdominal: Reports: poor appetite Genitourinary: Reports: no symptoms Neurologic/Psychiatric: Reports: weakness Endocrine: Reports: unexplained weight gain Hematologic/Lymphatic: Reports: no symptoms Allergies: Coded Allergies: CORTISONE (Verified Allergy, Unknown, 11/14/16) STREPTOMYCIN (Verified Allergy, Unknown, 11/14/16) SULFA (SULFONAMIDE ANTIBIOTICS) (Verified Allergy, Unknown, 11/14/16) Subjective feels slightly better but remains weak, calm Objective Last 24 Hour Vital Signs Date Time Temp Pulse Resp B/P Pulse Ox O2 Delivery O2 Flow Rate FiO2 11/16/16 16:22 97.1 84 23 123/59 97 Room Air 11/16/16 12:28 98.3 69 20 105/66 97 Room Air 11/16/16 08:00 97.7 77 20 114/48 97 Room Air 11/15/16 21:00 98.2 86 20 108/52 98 Room Air Intake and Output 11/15/16 11/16/16 19:00 07:00 Intake Total 1380 ml 900 ml Balance 1380 ml 900 ml Intake Oral 480 ml IV Total 900 ml 900 ml # Voids 4 2 Laboratory Tests 11/16/16 05:50: White Blood Count 7.5, Red Blood Count 3.47L, Hemoglobin 10.9L, Hematocrit 31.8L , Mean Corpuscular Volume 92, Mean Corpuscular Hemoglobin 31.3H, Mean Corpuscular Hemoglobin Concent 34.2, Red Cell Distribution Width 11.9, Platelet Count 232, Mean Platelet Volume 5.6L, Neutrophils (%) (Auto) 77.5H, Lymphocytes (%) (Auto) 11.9L, Monocytes (%) (Auto) 9.1, Eosinophils (%) (Auto) 0.6, Basophils (%) (Auto) 0.9, Sodium Level 136, Potassium Level 3.7, Chloride Level 98, Carbon Dioxide Level 24, Anion Gap 14, Blood Urea Nitrogen 44H, Creatinine 0.8, Estimat Glomerular Filtration Rate , Glucose Level 124H, Calcium Level 9.9 Height (Feet): 5 Height (Inches): 2.00 Weight (Pounds): 96 General Appearance: alert EENT: normal ENT inspection Neck: normal alignment Cardiovascular: normal rate Respiratory/Chest: lungs clear Pelvis: normal rectal exam Genitourinary/Rectal: heme negative stool Extremities: non-tender Edema: mild edema Neurologic: alert Skin: warm/dry Dennys Almazan November 16, 2016 17:58
--- NOTE | 2016-11-16 18:01 | Nephrology Progress Note ---
Assessment/Plan Problem List: (1) Hypercalcemia (2) CAITLIN (acute kidney injury) (3) Episode of generalized weakness (4) Breast cancer (5) HTN (hypertension) (6) Severe protein-calorie malnutrition Plan Monitor BUN/cr - improved Avoid nephrotoxic agents Monitor lytes, correct as needed Oncologist following Continue IVF DVT Prophylaxis Subjective Constitutional: Denies: chills, diaphoresis, fever, malaise, no symptoms, other , weakness HEENT: Denies: blurred vision, double vision, ear discharge, ear pain, eye pain , mouth pain, mouth swelling, no symptoms, nose congestion, nose pain, other, tearing, throat pain, throat swelling Genitourinary: Denies: burning, discharge, flank pain, frequency, hematuria, incontinence, no symptoms, other, pain, urgency Neurologic/Psychiatric: Denies: anxiety, depressed, emotional problems, headache, no symptoms, numbness, other, paresthesia, pre-existing deficit, seizure, tingling, tremors, weakness Objective Objective Last 24 Hour Vital Signs Date Time Temp Pulse Resp B/P Pulse Ox O2 Delivery O2 Flow Rate FiO2 11/16/16 16:22 97.1 84 23 123/59 97 Room Air 11/16/16 12:28 98.3 69 20 105/66 97 Room Air 11/16/16 08:00 97.7 77 20 114/48 97 Room Air 11/15/16 21:00 98.2 86 20 108/52 98 Room Air Intake and Output 11/15/16 11/16/16 19:00 07:00 Intake Total 1380 ml 900 ml Balance 1380 ml 900 ml Intake Oral 480 ml IV Total 900 ml 900 ml # Voids 4 2 Laboratory Tests 11/16/16 05:50: White Blood Count 7.5, Red Blood Count 3.47L, Hemoglobin 10.9L, Hematocrit 31.8L , Mean Corpuscular Volume 92, Mean Corpuscular Hemoglobin 31.3H, Mean Corpuscular Hemoglobin Concent 34.2, Red Cell Distribution Width 11.9, Platelet Count 232, Mean Platelet Volume 5.6L, Neutrophils (%) (Auto) 77.5H, Lymphocytes (%) (Auto) 11.9L, Monocytes (%) (Auto) 9.1, Eosinophils (%) (Auto) 0.6, Basophils (%) (Auto) 0.9, Sodium Level 136, Potassium Level 3.7, Chloride Level 98, Carbon Dioxide Level 24, Anion Gap 14, Blood Urea Nitrogen 44H, Creatinine 0.8, Estimat Glomerular Filtration Rate , Glucose Level 124H, Calcium Level 9.9 Height (Feet): 5 Height (Inches): 2.00 Weight (Pounds): 96 General Appearance: no apparent distress, alert EENT: normal ENT inspection Neck: normal alignment, supple Cardiovascular: normal rate, regular rhythm, no JVD Respiratory/Chest: normal breath sounds, no respiratory distress Abdomen: non tender, no organomegaly Extremities: normal range of motion, non-tender, normal inspection Neurologic: responsive, normal mood/affect Jacqueline Jauregui N.P. November 16, 2016 18:01
[2016-11-16 19:51] VITALS: BP 100/43
[2016-11-16] MEDS: Miralax 17gm pkt ORAL SCH (20:25)
--- NOTE | 2016-11-16 21:15 | Consultation ---
DATE OF CONSULTATION: 11/16/2016 POOR CONSULTING PHYSICIAN: Unique Arita M.D. HISTORY OF PRESENT ILLNESS: This is an 85-year-old with a past medical history of breast cancer, who currently refused to chemotherapy and radiation and currently on herbal medication, presented with altered mental status and failure to thrive. During the evaluation, the patient is alert and oriented x2 and calm. No anxiety or agitation, however she is unable to understand process, communicate, or appreciate the informations given to her in regards to her medical condition. The patient is also complaining of weakness. She is not currently on any psychotropic medication beside Restoril. PAST PSYCHIATRIC HISTORY: No known psychiatric hospitalization. History of anxiety disorder, currently being treated with lorazepam and Restoril. PAST MEDICAL HISTORY: Significant for breast cancer, acute kidney injury, and hypertension. SUBSTANCE ABUSE HISTORY: No history of illicit drug use or alcohol. MEDICATIONS: Medications at hospital includes heparin, Tylenol, Motrin, MiraLax, Ativan, Catapres, and nitroglycerin. MENTAL STATUS EXAMINATION: The patient was found asleep, however, arousable, calm, alert and oriented x2. Mood is dysphoric. Affect is constricted and congruent mood. Thought process, paucity of thought content. Thought content, no suicidal or homicidal ideation. ASSESSMENT: AXIS I Delirium, mild and depressive disorder. AXIS II Deferred. AXIS III Failure to thrive, . AXIS IV Low. AXIS V GAF is 25. PLAN: 1. I do recommend Remeron help her mental status, which includes anxiety and also . 2. . Unique Arita M.D. DR: Azucena JOB#: [id number] CC:
--- NOTE | 2016-11-16 22:30 | Pulmonology Progress Note ---
Assessment/Plan Problems: (1) CAITLIN (acute kidney injury) (2) Hypercalcemia (3) Severe protein-calorie malnutrition (4) Breast cancer (5) HTN (hypertension) Assessment/Plan vi fluids watch K level, monitor BP check electrolytes dc planning Subjective ROS Limited/Unobtainable: No Constitutional: Reports: no symptoms HEENT: Repors: no symptoms Allergies: Coded Allergies: CORTISONE (Verified Allergy, Unknown, 11/14/16) STREPTOMYCIN (Verified Allergy, Unknown, 11/14/16) SULFA (SULFONAMIDE ANTIBIOTICS) (Verified Allergy, Unknown, 11/14/16) Objective Last 24 Hour Vital Signs Date Time Temp Pulse Resp B/P Pulse Ox O2 Delivery O2 Flow Rate FiO2 11/16/16 19:51 98.2 80 17 100/43 95 Room Air 11/16/16 19:22 80 16 Room Air 11/16/16 16:22 97.1 84 23 123/59 97 Room Air 11/16/16 12:28 98.3 69 20 105/66 97 Room Air 11/16/16 08:00 97.7 77 20 114/48 97 Room Air Intake and Output 11/15/16 11/16/16 19:00 07:00 Intake Total 1380 ml 900 ml Balance 1380 ml 900 ml Intake Oral 480 ml IV Total 900 ml 900 ml # Voids 4 2 Objective General Appearance: cachetic Lines, tubes and drains: peripheral HEENT: normocephalic Neck: non-tender Respiratory/Chest: chest wall non-tender, normal breath sounds, dense mass left breast Cardiovascular/Chest: normal peripheral pulses Abdomen: normal bowel sounds Genitourinary/Rectal: normal genital exam Extremities: normal range of motion Skin Exam: normal pigmentation 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 Laboratory Tests 11/16/16 05:50: White Blood Count 7.5, Red Blood Count 3.47L, Hemoglobin 10.9L, Hematocrit 31.8L , Mean Corpuscular Volume 92, Mean Corpuscular Hemoglobin 31.3H, Mean Corpuscular Hemoglobin Concent 34.2, Red Cell Distribution Width 11.9, Platelet Count 232, Mean Platelet Volume 5.6L, Neutrophils (%) (Auto) 77.5H, Lymphocytes (%) (Auto) 11.9L, Monocytes (%) (Auto) 9.1, Eosinophils (%) (Auto) 0.6, Basophils (%) (Auto) 0.9, Sodium Level 136, Potassium Level 3.7, Chloride Level 98, Carbon Dioxide Level 24, Anion Gap 14, Blood Urea Nitrogen 44H, Creatinine 0.8, Estimat Glomerular Filtration Rate , Glucose Level 124H, Calcium Level 9.9 Current Medications Medications (Trade) Dose Ordered Sig/Tete Route PRN Reason Start Time Stop Time Status Last Admin Dose Admin Acetaminophen (Tylenol) 650 mg Q4H PRN ORAL fever 11/14/16 21:45 12/14/16 21:44 Al Hydroxide/Mg Hydroxide (Mylanta II) 30 ml Q6H PRN ORAL dyspepsia 11/14/16 21:45 12/14/16 21:44 Albuterol/ Ipratropium (DuoNeb 0.5-3(2.5)mg/3ml) 3 ml Q4H PRN HHN Shortness of Breath 11/14/16 21:45 11/19/16 21:44 Clonidine HCl 0.1 mg 0.1 mg Q4H PRN ORAL For High Blood Pressure 11/14/16 21:45 12/14/16 21:44 Dextrose (Dextrose 50%) STAT PRN IV Hypoglycemia 11/14/16 21:45 12/14/16 21:44 Dextrose/Sodium Chloride (D5 0.45% NS) 1,000 ml @ 75 mls/hr [id number] IV 11/14/16 21:45 12/14/16 21:44 11/16/16 18:09 Docusate Sodium (Colace) 100 mg TWICE A DAY ORAL 11/15/16 18:00 12/15/16 17:59 11/16/16 18:10 Heparin Sodium (Porcine) (Heparin 5000 units/ml) 5,000 units EVERY 12 HOURS SUBQ 11/15/16 22:00 12/15/16 21:59 11/16/16 20:25 Lorazepam (Ativan 2mg/ml 1ml) 0.5 mg Q4H PRN IV For Anxiety 11/14/16 21:45 11/21/16 21:44 Morphine Sulfate (Morphine Sulfate) 1 mg Q4H PRN IVP For Pain 7-10 11/14/16 21:45 11/21/16 21:44 Nitroglycerin (Ntg) 0.4 mg Q5M X 3 DOSES PRN SL Prn Chest Pain 11/14/16 21:45 12/14/16 21:44 Ondansetron HCl (Zofran) 4 mg Q6H PRN IVP Nausea & Vomiting 11/14/16 21:45 12/14/16 21:44 Polyethylene Glycol (Miralax) 17 gm BEDTIME ORAL 11/15/16 21:00 12/15/16 20:59 11/16/16 20:25 Polyethylene Glycol (Miralax) 17 gm HSPRN PRN ORAL Constipation 11/14/16 21:45 12/14/16 21:44 Temazepam (Restoril) 15 mg HSPRN PRN ORAL Insomnia 11/14/16 21:45 11/21/16 21:44 LAVONNE ARNETT November 16, 2016 22:30
[2016-11-16 23:42] VITALS: BP 127/65
[2016-11-17] MEDS: D5 1/2NS 1,000 ML IV SCH ×2 (03:25→17:28)
[2016-11-17 04:00] VITALS: BP 100/57
[2016-11-17 06:48] LABS: EOSINOPHILS % (AUTO) 0.6 % (0.0-3.0); LYMPHOCYTES % (AUTO) 15.2 % (20.0-45.0); MEAN CORPUSCULAR HEMOGLOBIN 31.4 PG (27.0-31.0); MEAN CORPUSCULAR HGB CONC 34.6 G/DL (32.0-36.0); MEAN CORPUSCULAR VOLUME 91 FL (80-99); MEAN PLATELET VOLUME 5.7 FL (6.5-10.1); MONOCYTES % (AUTO) 9.7 % (1.0-10.0); NEUTROPHILS % (AUTO) 73.5 % (45.0-75.0); PLATELET COUNT 222 K/UL (150-450); RED CELL DISTRIBUTION WIDTH 11.7 % (11.6-14.8); WHITE BLOOD COUNT 7.6 K/UL (4.8-10.8)
[2016-11-17 07:17] LABS: ANION GAP 11 (5-15); CALCIUM 9.5 mg/dL (8.6-10.2); CARBON DIOXIDE 25 mEQ/L (20-30); CHLORIDE 100 mEQ/L (98-107); CREATININE 0.7 mg/dL (0.5-0.9); HEMOLYSIS 1; POTASSIUM 3.7 mEQ/L (3.4-4.9); SODIUM 136 mEQ/L (135-145)
--- NOTE | 2016-11-17 07:42 | Cardiology Report ---
APPROVED REPORT EXAM: Two-dimensional and M-mode echocardiogram with Doppler and color Doppler. INDICATION Left Ventricular function. M-mode measurements of left ventricle not obtainable due to cardiac position (angle) Normal left ventricular chamber size. Hyper dynamic left ventricle. Left ventricular ejection fraction estimated to be 70%. No left ventricular hypertrophy. No evidence of pericardial effusion. Anterior Echo-free space, may be due to pericardial fat or effusion. All other cardiac chamber sizes are within normal limits. Focal aortic valve sclerosis with adequate cusp excursion. Thickened mitral valve leaflets with normal excursion. Mild, Heavy mitral annulus and aortic root calcification. Normal pulmonic valve structure Normal tricuspid valve structure IVC at normal size and consistent with physiological collapse. A color flow and spectral Doppler study was performed and revealed: No Severe aortic insufficiency. peak aortic valve gradient of 8.29mm Hg and a mean of 3.73mmHg. Aortic valve area 3.6 cm2 calculated by continuity equation. Peak LVOT gradient of 9.61mmHg and a mean of 3.79mmHg. Mild mitral regurgitation. Mitral inflow velocities indicates grade I left ventricular diastolic dysfunction. Mild, tricuspid regurgitation. Tricuspid systolic velocities suggests peak right ventricular systolic pressure of 25mmHg consistent with pulmonary hypertension. Mild pulmonic regurgitation present.
[2016-11-17 08:19] VITALS: BP 98/50
[2016-11-17] MEDS: Heparin 5000 units/ml inj SUBQ SCH ×2 (08:30→20:19)
[2016-11-17] MEDS: Docusate 100mg cap ORAL SCH ×2 (08:30→17:28)
--- NOTE | 2016-11-17 09:18 | Diagnostic Imaging Report ---
Indication: Chest Pain Comparison: None A single view chest radiograph was obtained. Findings: No definite infiltrate or pulmonary vascular congestion identified. The heart is normal in size. The aorta is mildly enlarged consistent with atherosclerotic vascular disease. The bones are osteopenic. Impression: No acute disease
[2016-11-17 12:26] VITALS: BP 109/50
--- NOTE | 2016-11-17 12:36 | Diagnostic Imaging Report ---
APPROVED REPORT CPT Code: 73769 Present Symptoms Lower Extremity Pain: Bilateral BILATERAL: Imaging reveals a patent deep venous system bilaterally. There is no evidence of thrombus within the femoral, popliteal or tibial segments. The greater saphenous veins are also within normal limits. Doppler indicates normal spontaneous flow within these segments.
--- NOTE | 2016-11-17 12:36 | Diagnostic Imaging Report ---
APPROVED REPORT CPT Code: 29955 Vascular Symptoms Dizziness and Vertigo Doppler Spectral Velocity Analysis RightLeft BILATERAL: CCA/BULB - Imaging reveals irregular, minimal plaque in both carotid bulbs. arteries. The Doppler spectral flow analysis is within normal limits throughout the internal and external carotid arteries. VERTEBRALS - Imaging reveals both vertebral arteries to be patent, without evidence of stenosis or steal.
--- NOTE | 2016-11-17 12:54 | General Progress Note ---
Assessment/Plan Problem List: (1) Hypercalcemia ICD Codes: E83.52 - Hypercalcemia SNOMED: 94010811 (2) CAITLIN (acute kidney injury) ICD Codes: N17.9 - Acute kidney failure, unspecified SNOMED: 77269593 (3) Episode of generalized weakness ICD Codes: R53.1 - Weakness SNOMED: 52313756 (4) Breast cancer ICD Codes: C50.919 - Malignant neoplasm of unspecified site of unspecified female breast SNOMED: 759055919 (5) HTN (hypertension) ICD Codes: I10 - Essential (primary) hypertension SNOMED: 62632906 (6) Severe protein-calorie malnutrition ICD Codes: E43 - Unspecified severe protein-calorie malnutrition SNOMED: 852245190 Status: stable, progressing, tolerating diet Assessment/Plan ot pt diet ivf cbc bmp am dc plan w hh Subjective Constitutional: Reports: weakness Allergies: Coded Allergies: CORTISONE (Verified Allergy, Unknown, 11/14/16) STREPTOMYCIN (Verified Allergy, Unknown, 11/14/16) SULFA (SULFONAMIDE ANTIBIOTICS) (Verified Allergy, Unknown, 11/14/16) All Systems: reviewed and negative except above Subjective sleepy calm in bed Objective Last 24 Hour Vital Signs Date Time Temp Pulse Resp B/P Pulse Ox O2 Delivery O2 Flow Rate FiO2 11/17/16 12:26 99.5 78 16 109/50 98 Room Air 11/17/16 08:19 97.5 74 15 98/50 99 Room Air 11/17/16 04:00 97.7 78 16 100/57 99 Room Air 11/16/16 23:42 97.7 78 16 127/65 98 Room Air 11/16/16 19:51 98.2 80 17 100/43 95 Room Air 11/16/16 19:22 80 16 Room Air 11/16/16 16:22 97.1 84 23 123/59 97 Room Air Intake and Output 11/16/16 11/17/16 19:00 07:00 Intake Total 1245 ml 825 ml Balance 1245 ml 825 ml Intake Oral 720 ml IV Total 525 ml 825 ml # Voids 1 2 Laboratory Tests 11/17/16 04:30: White Blood Count 7.6, Red Blood Count 3.00L, Hemoglobin 9.4L, Hematocrit 27.2L , Mean Corpuscular Volume 91, Mean Corpuscular Hemoglobin 31.4H, Mean Corpuscular Hemoglobin Concent 34.6, Red Cell Distribution Width 11.7, Platelet Count 222, Mean Platelet Volume 5.7L, Neutrophils (%) (Auto) 73.5, Lymphocytes ( %) (Auto) 15.2L, Monocytes (%) (Auto) 9.7, Eosinophils (%) (Auto) 0.6, Basophils (%) (Auto) 1.0, Sodium Level 136, Potassium Level 3.7, Chloride Level 100, Carbon Dioxide Level 25, Anion Gap 11, Blood Urea Nitrogen 23, Creatinine 0.7, Estimat Glomerular Filtration Rate , Glucose Level 115H, Calcium Level 9.5 11/17/16 05:00: Calcium (Send out) [Pending], CA 15-3 Antigen [Pending], CA 27.29 [Pending], CA 125 Antigen [Pending], Parathyroid Hormone (Intact) [Pending] Height (Feet): 5 Height (Inches): 2.00 Weight (Pounds): 96 General Appearance: lethargic EENT: normal ENT inspection Neck: normal alignment Cardiovascular: normal peripheral pulses, normal rate, regular rhythm Respiratory/Chest: chest wall non-tender, lungs clear, normal breath sounds Abdomen: normal bowel sounds, non tender, soft Extremities: normal inspection Edema: no edema noted Arm (L), no edema noted Arm (R), no edema noted Leg (L), no edema noted Leg (R), no edema noted Pedal (L), no edema noted Pedal (R), no edema noted Generalized Neurologic: responsive, motor weakness Skin: normal pigmentation, warm/dry SRIKANTH VILLASENOR November 17, 2016 12:54
--- NOTE | 2016-11-17 14:37 | Pulmonology Progress Note ---
Assessment/Plan Problems: (1) CAITLIN (acute kidney injury) (2) Hypercalcemia (3) Severe protein-calorie malnutrition (4) Breast cancer (5) HTN (hypertension) Assessment/Plan still feeling weak vi fluids watch K level, monitor BP check electrolytes dc planning pt wants to be DNR Subjective ROS Limited/Unobtainable: No Constitutional: Reports: no symptoms HEENT: Repors: no symptoms Respiratory: Reports: no symptoms Allergies: Coded Allergies: CORTISONE (Verified Allergy, Unknown, 11/14/16) STREPTOMYCIN (Verified Allergy, Unknown, 11/14/16) SULFA (SULFONAMIDE ANTIBIOTICS) (Verified Allergy, Unknown, 11/14/16) Objective Last 24 Hour Vital Signs Date Time Temp Pulse Resp B/P Pulse Ox O2 Delivery O2 Flow Rate FiO2 11/17/16 13:54 98.4 11/17/16 12:26 99.5 78 16 109/50 98 Room Air 11/17/16 08:19 97.5 74 15 98/50 99 Room Air 11/17/16 04:00 97.7 78 16 100/57 99 Room Air 11/16/16 23:42 97.7 78 16 127/65 98 Room Air 11/16/16 19:51 98.2 80 17 100/43 95 Room Air 11/16/16 19:22 80 16 Room Air 11/16/16 16:22 97.1 84 23 123/59 97 Room Air Intake and Output 11/16/16 11/17/16 19:00 07:00 Intake Total 1245 ml 825 ml Balance 1245 ml 825 ml Intake Oral 720 ml IV Total 525 ml 825 ml # Voids 1 2 Objective General Appearance: cachetic Lines, tubes and drains: peripheral HEENT: normocephalic Neck: non-tender Respiratory/Chest: chest wall non-tender, normal breath sounds, dense mass left breast Cardiovascular/Chest: normal peripheral pulses Abdomen: normal bowel sounds Genitourinary/Rectal: normal genital exam Extremities: normal range of motion Skin Exam: normal pigmentation 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 Laboratory Tests 11/17/16 04:30: White Blood Count 7.6, Red Blood Count 3.00L, Hemoglobin 9.4L, Hematocrit 27.2L , Mean Corpuscular Volume 91, Mean Corpuscular Hemoglobin 31.4H, Mean Corpuscular Hemoglobin Concent 34.6, Red Cell Distribution Width 11.7, Platelet Count 222, Mean Platelet Volume 5.7L, Neutrophils (%) (Auto) 73.5, Lymphocytes ( %) (Auto) 15.2L, Monocytes (%) (Auto) 9.7, Eosinophils (%) (Auto) 0.6, Basophils (%) (Auto) 1.0, Sodium Level 136, Potassium Level 3.7, Chloride Level 100, Carbon Dioxide Level 25, Anion Gap 11, Blood Urea Nitrogen 23, Creatinine 0.7, Estimat Glomerular Filtration Rate , Glucose Level 115H, Calcium Level 9.5 11/17/16 05:00: Calcium (Send out) [Pending], CA 15-3 Antigen [Pending], CA 27.29 [Pending], CA 125 Antigen [Pending], Parathyroid Hormone (Intact) [Pending] Current Medications Medications (Trade) Dose Ordered Sig/Tete Route PRN Reason Start Time Stop Time Status Last Admin Dose Admin Acetaminophen (Tylenol) 650 mg Q4H PRN ORAL fever 11/14/16 21:45 12/14/16 21:44 Al Hydroxide/Mg Hydroxide (Mylanta II) 30 ml Q6H PRN ORAL dyspepsia 11/14/16 21:45 12/14/16 21:44 Albuterol/ Ipratropium (DuoNeb 0.5-3(2.5)mg/3ml) 3 ml Q4H PRN HHN Shortness of Breath 11/14/16 21:45 11/19/16 21:44 Clonidine HCl 0.1 mg 0.1 mg Q4H PRN ORAL For High Blood Pressure 11/14/16 21:45 12/14/16 21:44 Dextrose (Dextrose 50%) STAT PRN IV Hypoglycemia 11/14/16 21:45 12/14/16 21:44 Dextrose/Sodium Chloride (D5 0.45% NS) 1,000 ml @ 75 mls/hr [id number] IV 11/14/16 21:45 12/14/16 21:44 11/17/16 03:25 Docusate Sodium (Colace) 100 mg TWICE A DAY ORAL 11/15/16 18:00 12/15/16 17:59 11/17/16 08:30 Heparin Sodium (Porcine) (Heparin 5000 units/ml) 5,000 units EVERY 12 HOURS SUBQ 11/15/16 22:00 12/15/16 21:59 11/17/16 08:30 Lorazepam (Ativan 2mg/ml 1ml) 0.5 mg Q4H PRN IV For Anxiety 11/14/16 21:45 11/21/16 21:44 Morphine Sulfate (Morphine Sulfate) 1 mg Q4H PRN IVP For Pain 7-10 11/14/16 21:45 11/21/16 21:44 Nitroglycerin (Ntg) 0.4 mg Q5M X 3 DOSES PRN SL Prn Chest Pain 11/14/16 21:45 12/14/16 21:44 Ondansetron HCl (Zofran) 4 mg Q6H PRN IVP Nausea & Vomiting 11/14/16 21:45 12/14/16 21:44 Polyethylene Glycol (Miralax) 17 gm BEDTIME ORAL 11/15/16 21:00 12/15/16 20:59 11/16/16 20:25 Polyethylene Glycol (Miralax) 17 gm HSPRN PRN ORAL Constipation 11/14/16 21:45 12/14/16 21:44 Temazepam (Restoril) 15 mg HSPRN PRN ORAL Insomnia 11/14/16 21:45 11/21/16 21:44 LAVONNE ARNETT November 17, 2016 14:37
[2016-11-17 15:14] VITALS: BP 108/57
[2016-11-17] MEDS: Miralax 17gm pkt ORAL SCH (20:20)
[2016-11-17 21:00] VITALS: BP 140/75
--- NOTE | 2016-11-17 23:07 | Nephrology Progress Note ---
Assessment/Plan Problem List: (1) Hypercalcemia (2) CAITLIN (acute kidney injury) (3) Episode of generalized weakness (4) HTN (hypertension) (5) Severe protein-calorie malnutrition (6) Weakness Plan Monitor BUN/cr Avoid nephrotoxic agents Monitor lytes, correct as needed Oncologist following Pain management Continue IVF DVT Prophylaxis AM labs Subjective Constitutional: Denies: chills, diaphoresis, fever, malaise, no symptoms, other , weakness HEENT: Denies: blurred vision, double vision, ear discharge, ear pain, eye pain , mouth pain, mouth swelling, no symptoms, nose congestion, nose pain, other, tearing, throat pain, throat swelling Genitourinary: Denies: burning, discharge, flank pain, frequency, hematuria, incontinence, no symptoms, other, pain, urgency Neurologic/Psychiatric: Denies: anxiety, depressed, emotional problems, headache, no symptoms, numbness, other, paresthesia, pre-existing deficit, seizure, tingling, tremors, weakness Subjective In no distress, hard of hearing Objective Objective Last 24 Hour Vital Signs Date Time Temp Pulse Resp B/P Pulse Ox O2 Delivery O2 Flow Rate FiO2 11/17/16 21:00 98.2 86 18 140/75 100 Room Air 11/17/16 19:43 85 16 Room Air 11/17/16 15:14 97.6 84 15 108/57 99 Room Air 11/17/16 13:54 98.4 11/17/16 12:26 99.5 78 16 109/50 98 Room Air 11/17/16 08:19 97.5 74 15 98/50 99 Room Air 11/17/16 04:00 97.7 78 16 100/57 99 Room Air 11/16/16 23:42 97.7 78 16 127/65 98 Room Air Intake and Output 11/16/16 11/17/16 18:59 06:59 Intake Total 1245 ml 900 ml Balance 1245 ml 900 ml Intake Oral 720 ml IV Total 525 ml 900 ml # Voids 1 2 Laboratory Tests 11/17/16 04:30: White Blood Count 7.6, Red Blood Count 3.00L, Hemoglobin 9.4L, Hematocrit 27.2L , Mean Corpuscular Volume 91, Mean Corpuscular Hemoglobin 31.4H, Mean Corpuscular Hemoglobin Concent 34.6, Red Cell Distribution Width 11.7, Platelet Count 222, Mean Platelet Volume 5.7L, Neutrophils (%) (Auto) 73.5, Lymphocytes ( %) (Auto) 15.2L, Monocytes (%) (Auto) 9.7, Eosinophils (%) (Auto) 0.6, Basophils (%) (Auto) 1.0, Sodium Level 136, Potassium Level 3.7, Chloride Level 100, Carbon Dioxide Level 25, Anion Gap 11, Blood Urea Nitrogen 23, Creatinine 0.7, Estimat Glomerular Filtration Rate , Glucose Level 115H, Calcium Level 9.5 11/17/16 05:00: Calcium (Send out) [Pending], CA 15-3 Antigen [Pending], CA 27.29 [Pending], CA 125 Antigen [Pending], Parathyroid Hormone (Intact) [Pending] Height (Feet): 5 Height (Inches): 2.00 Weight (Pounds): 96 General Appearance: no apparent distress EENT: normal ENT inspection Neck: normal alignment Cardiovascular: normal peripheral pulses, normal rate, regular rhythm, no JVD Respiratory/Chest: lungs clear, normal breath sounds, no respiratory distress Abdomen: non tender, soft, no organomegaly Extremities: non-tender, normal inspection Neurologic: alert, responsive, normal mood/affect JOSÉ MCCARTHY November 17, 2016 23:07
--- NOTE | 2016-11-17 23:37 | General Progress Note ---
Assessment/Plan Assessment/Plan IMPRESSION: 1. History of breast cancer. 2. History of noncompliance. 3. Hypertension. 4. Malnutrition. 5. Significant weight loss. 6. Decreased oral intake. 7. Decreased fluid intake. 8. Debilitation. 9. Failure to thrive. RECOMMENDATIONS: 1. Watch count. 2. Watch coagulopathy. 3. PRBC transfusion p.r.n. basis. 4. Hydration IV. 5. GI evaluation. 6. Reviewed tumor markers 7. Skin care. Subjective Constitutional: Reports: no symptoms HEENT: Reports: no symptoms Cardiovascular: Reports: no symptoms Respiratory: Reports: no symptoms Gastrointestinal/Abdominal: Reports: poor appetite Neurologic/Psychiatric: Reports: no symptoms Endocrine: Reports: no symptoms Hematologic/Lymphatic: Reports: anemia Allergies: Coded Allergies: CORTISONE (Verified Allergy, Unknown, 11/14/16) STREPTOMYCIN (Verified Allergy, Unknown, 11/14/16) SULFA (SULFONAMIDE ANTIBIOTICS) (Verified Allergy, Unknown, 11/14/16) Subjective feels slightly better but remains weak, calm Objective Last 24 Hour Vital Signs Date Time Temp Pulse Resp B/P Pulse Ox O2 Delivery O2 Flow Rate FiO2 11/17/16 21:00 98.2 86 18 140/75 100 Room Air 11/17/16 19:43 85 16 Room Air 11/17/16 15:14 97.6 84 15 108/57 99 Room Air 11/17/16 13:54 98.4 11/17/16 12:26 99.5 78 16 109/50 98 Room Air 11/17/16 08:19 97.5 74 15 98/50 99 Room Air 11/17/16 04:00 97.7 78 16 100/57 99 Room Air 11/16/16 23:42 97.7 78 16 127/65 98 Room Air Intake and Output 11/16/16 11/17/16 18:59 06:59 Intake Total 1245 ml 900 ml Balance 1245 ml 900 ml Intake Oral 720 ml IV Total 525 ml 900 ml # Voids 1 2 Laboratory Tests 11/17/16 04:30: White Blood Count 7.6, Red Blood Count 3.00L, Hemoglobin 9.4L, Hematocrit 27.2L , Mean Corpuscular Volume 91, Mean Corpuscular Hemoglobin 31.4H, Mean Corpuscular Hemoglobin Concent 34.6, Red Cell Distribution Width 11.7, Platelet Count 222, Mean Platelet Volume 5.7L, Neutrophils (%) (Auto) 73.5, Lymphocytes ( %) (Auto) 15.2L, Monocytes (%) (Auto) 9.7, Eosinophils (%) (Auto) 0.6, Basophils (%) (Auto) 1.0, Sodium Level 136, Potassium Level 3.7, Chloride Level 100, Carbon Dioxide Level 25, Anion Gap 11, Blood Urea Nitrogen 23, Creatinine 0.7, Estimat Glomerular Filtration Rate , Glucose Level 115H, Calcium Level 9.5 11/17/16 05:00: Calcium (Send out) [Pending], CA 15-3 Antigen [Pending], CA 27.29 [Pending], CA 125 Antigen [Pending], Parathyroid Hormone (Intact) [Pending] Height (Feet): 5 Height (Inches): 2.00 Weight (Pounds): 96 General Appearance: no apparent distress EENT: TMs normal Neck: supple Cardiovascular: regular rhythm Respiratory/Chest: no respiratory distress Abdomen: no organomegaly Genitourinary/Rectal: heme negative stool Extremities: non-tender Edema: 1+ Leg (L), 1+ Leg (R) Neurologic: oriented x 3 Skin: normal pigmentation Dennys Almazan November 17, 2016 23:36
[2016-11-18] VITALS: BP 119/63
[2016-11-18 04:00] VITALS: BP 114/63
[2016-11-18] MEDS: D5 1/2NS 1,000 ML IV SCH (06:34)
[2016-11-18 07:05] LABS: BASOPHILS % (AUTO) 1.2 % (0.0-2.0); EOSINOPHILS % (AUTO) 0.6 % (0.0-3.0); LYMPHOCYTES % (AUTO) 21.1 % (20.0-45.0); MEAN CORPUSCULAR HEMOGLOBIN 31.6 PG (27.0-31.0); MEAN CORPUSCULAR HGB CONC 34.2 G/DL (32.0-36.0); MEAN CORPUSCULAR VOLUME 92 FL (80-99); MEAN PLATELET VOLUME 5.5 FL (6.5-10.1); MONOCYTES % (AUTO) 9.7 % (1.0-10.0); NEUTROPHILS % (AUTO) 67.4 % (45.0-75.0); PLATELET COUNT 225 K/UL (150-450); RED BLOOD COUNT 2.85 M/UL (4.20-5.40); RED CELL DISTRIBUTION WIDTH 12.3 % (11.6-14.8)
[2016-11-18 07:40] LABS: ANION GAP 10 (5-15); CALCIUM 9.6 mg/dL (8.6-10.2); CARBON DIOXIDE 26 mEQ/L (20-30); CHLORIDE 101 mEQ/L (98-107); CREATININE 0.7 mg/dL (0.5-0.9); HEMOLYSIS 5; POTASSIUM 4.1 mEQ/L (3.4-4.9); SODIUM 137 mEQ/L (135-145)
[2016-11-18 08:03] VITALS: BP 151/74
[2016-11-18] MEDS: Docusate 100mg cap ORAL SCH ×2 (09:00→09:26)
[2016-11-18] MEDS: Heparin 5000 units/ml inj SUBQ SCH (09:28)
[2016-11-18 11:33] VITALS: BP 126/62
--- NOTE | 2016-11-18 13:52 | General Progress Note ---
Assessment/Plan Problem List: (1) Hypercalcemia ICD Codes: E83.52 - Hypercalcemia SNOMED: 51258012 (2) CAITLIN (acute kidney injury) ICD Codes: N17.9 - Acute kidney failure, unspecified SNOMED: 12931062 (3) Episode of generalized weakness ICD Codes: R53.1 - Weakness SNOMED: 41686911 (4) Breast cancer ICD Codes: C50.919 - Malignant neoplasm of unspecified site of unspecified female breast SNOMED: 848536692 (5) HTN (hypertension) ICD Codes: I10 - Essential (primary) hypertension SNOMED: 29370522 (6) Severe protein-calorie malnutrition ICD Codes: E43 - Unspecified severe protein-calorie malnutrition SNOMED: 140563613 Status: stable, progressing, tolerating diet Assessment/Plan ot pt diet ivf cbc bmp am dc plan w hh Subjective Constitutional: Reports: weakness Allergies: Coded Allergies: CORTISONE (Verified Allergy, Unknown, 11/14/16) STREPTOMYCIN (Verified Allergy, Unknown, 11/14/16) SULFA (SULFONAMIDE ANTIBIOTICS) (Verified Allergy, Unknown, 11/14/16) All Systems: reviewed and negative except above Subjective sleepy calm in bed Objective Last 24 Hour Vital Signs Date Time Temp Pulse Resp B/P Pulse Ox O2 Delivery O2 Flow Rate FiO2 11/18/16 11:33 97.7 77 22 126/62 99 Room Air 11/18/16 08:03 97.9 75 21 151/74 97 Room Air 11/18/16 04:00 98.6 78 20 114/63 92 Room Air 11/18/16 00:00 97.5 78 20 119/63 98 Room Air 11/17/16 21:00 98.2 86 18 140/75 100 Room Air 11/17/16 19:43 85 16 Room Air 11/17/16 15:14 97.6 84 15 108/57 99 Room Air 11/17/16 13:54 98.4 Intake and Output 11/17/16 11/18/16 19:00 07:00 Intake Total 1350 ml 925 ml Balance 1350 ml 925 ml Intake Oral 600 ml 250 ml IV Total 750 ml 675 ml # Voids 2 Laboratory Tests 11/18/16 05:25: White Blood Count 7.0, Red Blood Count 2.85L, Hemoglobin 9.0L, Hematocrit 26.2L , Mean Corpuscular Volume 92, Mean Corpuscular Hemoglobin 31.6H, Mean Corpuscular Hemoglobin Concent 34.2, Red Cell Distribution Width 12.3, Platelet Count 225, Mean Platelet Volume 5.5L, Neutrophils (%) (Auto) 67.4, Lymphocytes ( %) (Auto) 21.1, Monocytes (%) (Auto) 9.7, Eosinophils (%) (Auto) 0.6, Basophils (%) (Auto) 1.2, Sodium Level 137, Potassium Level 4.1, Chloride Level 101, Carbon Dioxide Level 26, Anion Gap 10, Blood Urea Nitrogen 17, Creatinine 0.7, Estimat Glomerular Filtration Rate , Glucose Level 113H, Calcium Level 9.6 Height (Feet): 5 Height (Inches): 2.00 Weight (Pounds): 96 General Appearance: lethargic EENT: normal ENT inspection Neck: normal alignment Cardiovascular: normal peripheral pulses, normal rate, regular rhythm Respiratory/Chest: chest wall non-tender, lungs clear, normal breath sounds Abdomen: normal bowel sounds, non tender, soft Extremities: normal inspection Edema: no edema noted Arm (L), no edema noted Arm (R), no edema noted Leg (L), no edema noted Leg (R), no edema noted Pedal (L), no edema noted Pedal (R), no edema noted Generalized Neurologic: responsive, motor weakness Skin: normal pigmentation, warm/dry SRIKANTH VILLASENOR November 18, 2016 13:52
--- NOTE | 2016-11-18 15:01 | Pulmonology Progress Note ---
Assessment/Plan Problems: (1) CAITLIN (acute kidney injury) (2) Hypercalcemia (3) Severe protein-calorie malnutrition (4) Breast cancer (5) HTN (hypertension) Assessment/Plan getting better vi fluids watch K level, monitor BP check electrolytes dc planning pt wants to be DNR POLST signed ok to dc home Subjective ROS Limited/Unobtainable: No Constitutional: Reports: no symptoms HEENT: Repors: no symptoms Allergies: Coded Allergies: CORTISONE (Verified Allergy, Unknown, 11/14/16) STREPTOMYCIN (Verified Allergy, Unknown, 11/14/16) SULFA (SULFONAMIDE ANTIBIOTICS) (Verified Allergy, Unknown, 11/14/16) Objective Last 24 Hour Vital Signs Date Time Temp Pulse Resp B/P Pulse Ox O2 Delivery O2 Flow Rate FiO2 11/18/16 11:33 97.7 77 22 126/62 99 Room Air 11/18/16 08:03 97.9 75 21 151/74 97 Room Air 11/18/16 04:00 98.6 78 20 114/63 92 Room Air 11/18/16 00:00 97.5 78 20 119/63 98 Room Air 11/17/16 21:00 98.2 86 18 140/75 100 Room Air 11/17/16 19:43 85 16 Room Air 11/17/16 15:14 97.6 84 15 108/57 99 Room Air Intake and Output 11/17/16 11/18/16 19:00 07:00 Intake Total 1350 ml 925 ml Balance 1350 ml 925 ml Intake Oral 600 ml 250 ml IV Total 750 ml 675 ml # Voids 2 Objective General Appearance: cachetic Lines, tubes and drains: peripheral HEENT: normocephalic Neck: non-tender Respiratory/Chest: chest wall non-tender, normal breath sounds, dense mass left breast Cardiovascular/Chest: normal peripheral pulses Abdomen: normal bowel sounds Genitourinary/Rectal: normal genital exam Extremities: normal range of motion Skin Exam: normal pigmentation 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 normal Laboratory Tests 11/18/16 05:25: White Blood Count 7.0, Red Blood Count 2.85L, Hemoglobin 9.0L, Hematocrit 26.2L , Mean Corpuscular Volume 92, Mean Corpuscular Hemoglobin 31.6H, Mean Corpuscular Hemoglobin Concent 34.2, Red Cell Distribution Width 12.3, Platelet Count 225, Mean Platelet Volume 5.5L, Neutrophils (%) (Auto) 67.4, Lymphocytes ( %) (Auto) 21.1, Monocytes (%) (Auto) 9.7, Eosinophils (%) (Auto) 0.6, Basophils (%) (Auto) 1.2, Sodium Level 137, Potassium Level 4.1, Chloride Level 101, Carbon Dioxide Level 26, Anion Gap 10, Blood Urea Nitrogen 17, Creatinine 0.7, Estimat Glomerular Filtration Rate , Glucose Level 113H, Calcium Level 9.6 Current Medications Medications (Trade) Dose Ordered Sig/Tete Route PRN Reason Start Time Stop Time Status Last Admin Dose Admin Acetaminophen (Tylenol) 650 mg Q4H PRN ORAL fever 11/14/16 21:45 12/14/16 21:44 Al Hydroxide/Mg Hydroxide (Mylanta II) 30 ml Q6H PRN ORAL dyspepsia 11/14/16 21:45 12/14/16 21:44 Albuterol/ Ipratropium (DuoNeb 0.5-3(2.5)mg/3ml) 3 ml Q4H PRN HHN Shortness of Breath 11/14/16 21:45 11/19/16 21:44 Clonidine HCl 0.1 mg 0.1 mg Q4H PRN ORAL For High Blood Pressure 11/14/16 21:45 12/14/16 21:44 Dextrose (Dextrose 50%) STAT PRN IV Hypoglycemia 11/14/16 21:45 12/14/16 21:44 Dextrose/Sodium Chloride (D5 0.45% NS) 1,000 ml @ 75 mls/hr [id number] IV 11/14/16 21:45 12/14/16 21:44 11/18/16 06:34 Docusate Sodium (Colace) 100 mg TWICE A DAY ORAL 11/15/16 18:00 12/15/16 17:59 11/17/16 17:28 Heparin Sodium (Porcine) (Heparin 5000 units/ml) 5,000 units EVERY 12 HOURS SUBQ 11/15/16 22:00 12/15/16 21:59 11/18/16 09:28 Lorazepam (Ativan 2mg/ml 1ml) 0.5 mg Q4H PRN IV For Anxiety 11/14/16 21:45 11/21/16 21:44 Morphine Sulfate (Morphine Sulfate) 1 mg Q4H PRN IVP For Pain 7-10 11/14/16 21:45 11/21/16 21:44 Nitroglycerin (Ntg) 0.4 mg Q5M X 3 DOSES PRN SL Prn Chest Pain 11/14/16 21:45 12/14/16 21:44 Ondansetron HCl (Zofran) 4 mg Q6H PRN IVP Nausea & Vomiting 11/14/16 21:45 12/14/16 21:44 Polyethylene Glycol (Miralax) 17 gm BEDTIME ORAL 11/15/16 21:00 12/15/16 20:59 11/17/16 20:20 Polyethylene Glycol (Miralax) 17 gm HSPRN PRN ORAL Constipation 11/14/16 21:45 12/14/16 21:44 Temazepam (Restoril) 15 mg HSPRN PRN ORAL Insomnia 11/14/16 21:45 11/21/16 21:44 LAVONNE ARNETT November 18, 2016 15:01
[2016-11-18 15:34] VITALS: BP 96/49
--- NOTE | 2016-11-18 18:15 | Progress Note ---
DATE: 11/18/2016 SUBJECTIVE: The patient still presents with low appetite and presents with depressed mood, decreased energy, and anhedonia. She is more lucid today. She is compliant with medications. MENTAL STATUS EXAMINATION: The patient is alert and oriented x3. Mood is dysphoric. Affect is constricted, congruent with mood. Thought process is concrete. Thought content, no suicidal or homicidal ideation. ASSESSMENT: 1. Failure to thrive. 2. Depression. 3. Breast cancer. PLANS: The patient will be continued on Remeron. Provide the patient with supportive therapy and reality orientation. Unique Arita M.D. DR: TANISHA JOB#: [id number] CC:
--- NOTE | 2016-11-19 14:48 | Discharge Summary ---
Discharge Summary Hospital Course Date of Admission November 14, 2016 at 18:01 Date of Discharge November 18, 2016 at 17:05 Admitting Diagnosis Weakness THUY Dejesus is a 85 year old female who was admitted on November 14, 2016 at 18:01 for Weakness Hospital Course [id number] Discharge Discharge Disposition Patient was discharged to Home with Home Health(06) Discharge Diagnoses: Dara Romeo NP Nov 19, 2016 14:48
--- NOTE | 2016-11-20 07:45 | Discharge Summary 2 SIG ---
DATE OF ADMISSION: 11/14/2016 DATE OF DISCHARGE: 11/18/2016 CONSULTANTS: 1. Alexandra Schulte M.D. 2. Ke Fleming M.D. 3. Dennys Almazan M.D. 4. Unique Arita M.D. BRIEF HOSPITAL COURSE: The patient is an 85-year-old female with history of breast CA, refusing medications but is on herbal medications, became lethargic and not eating well. The patient was taken to ED. On evaluation, the patient appears very weak, but alert and oriented. Labs consistent with dehydration and hypercalcemia. Urinalysis and chest x-ray was negative for infection. She was given IV hydration and was admitted for acute kidney injury and hypercalcemia. Dr. Fleming was consulted. The patient was given IV hydration and was given appetite stimulants. Dr. Almazan was consulted for evaluation of breast CA. The patient has noncompliance with treatment. Dr. Arita was consulted and was diagnosed with delirium. She was given Remeron and was provided supportive therapy and reality orientation. The patient wants to be DNR. POLST was signed. Renal function improved. The patient was discharged home with home health. FINAL DIAGNOSES: 1. Acute kidney injury. 2. Severe protein-calorie malnutrition. 3. Hypercalcemia. 4. Breast cancer. 5. Hypertension. 6. Delirium. 7. Do Not Resuscitate status. Rishi Sanchez D.O. I have been assigned to dictate discharge summary on this account and I was not involved in the patient's management. Dara Romeo N.P. DR: BOLA JOB#: [id number] CC: SUZANNE
== END 2016-11-18 17:05 | disposition home health service (06) | DRG 682 ==
LOC: EDBD 16:47 → EMR 17:37 → 4E 18:01 → EDBEDREQ 18:29
DX: N17.9 Acute kidney failure, unspecified (principal); E43 Unspecified severe protein-calorie malnutrition; E86.0 Dehydration; C50.919 Malignant neoplasm of unspecified site of unspecified female breast; E83.52 Hypercalcemia; I10 Essential (primary) hypertension; F32.9 Major depressive disorder, single episode, unspecified; R64 Cachexia; E46 Unspecified protein-calorie malnutrition; Z68.1 Body mass index [BMI] 19.9 or less, adult; R62.7 Adult failure to thrive; Z66 Do not resuscitate; R41.0 Disorientation, unspecified; Z91.19 Patient's noncompliance with other medical treatment and regimen; Z88.1 Allergy status to other antibiotic agents; Z88.2 Allergy status to sulfonamides; Z88.8 Allergy status to other drugs, medicaments and biological substances; R53.1 Weakness; F41.9 Anxiety disorder, unspecified
CPT/HCPCS: 36415; 71010; 80048; 80053; 80061; 81003; 82248; 82378; 82550; 82553; 82962; 83970; 84443; 84484; 85025; 85610; 85730; 86300; 86301; 86304; 93005; 93306; 93880; 93970; 94664; 97803